=== PATIENT | male | born 1945 | race Caucasian/White ===

== ENCOUNTER 2017-11-27 09:16 | Day surgery (SDC) | payer MEDICARE, OTHER ==
[2017-11-27] MEDS ORDERED: PROPOFOL 40 ML (11:09)
== END 2017-11-27 11:58 | disposition home or self-care (01) ==
LOC: GIL 09:16
DX: D50.9 Iron deficiency anemia, unspecified (principal); K64.8 Other hemorrhoids; I10 Essential (primary) hypertension; E11.9 Type 2 diabetes mellitus without complications; E78.5 Hyperlipidemia, unspecified; E66.9 Obesity, unspecified; Z79.82 Long term (current) use of aspirin; Z68.30 Body mass index [BMI] 30.0-30.9, adult; Z79.84 Long term (current) use of oral hypoglycemic drugs
CPT/HCPCS: 45378; 82962